=== PATIENT | male | born 1985 | race Caucasian/White ===

== ENCOUNTER 2019-09-19 14:16 | Emergency (ER) | payer OTHER, SELFPAY ==
--- NOTE | ~2019-09-19 | XR_ITS ---
XR ankle RT min 3V DATE: 09/19/2019 14:42 INDICATION: Twisted right ankle. Lateral pain. TECHNIQUE: 4 views COMPARISON: None FINDINGS: There is lateral ankle no fracture or dislocation of the ankle or disruption of the ankle m ortise is evident. Mild posterior calcaneal spurring. There is an apparently recent linear oblique proximal medial slice intra-articular fracture of the la teral base of the fifth metatarsal bone. Soft tissue swelling. IMPRESSION: Intra-articular proximal displaced lateral basilar fifth metatarsal fracture Lateral soft tissue swelling of the ankle Reviewed, dictated and finalized at location A.
[2019-09-19 14:31] VITALS: BP 131/89; PULSE 86; RESP 16; TEMP 37.2; O2SAT 99
--- NOTE | 2019-09-19 15:06 | ED.GENADULT ---
HPI - General Adult General Chief complaint: Extremity Injury, Lower Stated complaint: right ankle sprain Time Seen by Provider: 09/19/19 15:06 Source: patient and RN notes reviewed Mode of arrival: ambulatory Limitations: no limitations History of Present Illness HPI narrative: 34-year-old male presents with complains of tenderness and swelling to right ankle for the past 4 hours. Rolled RT ankle stepping off deck this morning at approximately 10am. Advil (2 tablets, last at 10:30am) with no relief. Radiating pain into foot upon bearing weight. No numbness or tingling or loss of mobility. Krishan says he is unable to bear weight, using crutches from home. Exacerbation factor consist of movement and bearing weight. The relieving factor is immobility. Denies discoloration. Denies altered sensation, back pain, neck pain, and suspected foreign body. Denies fever or chills. The patient reports he have not been diagnosed with COVID-19. The patient reports he is not waiting for the results of a COVID-19 lab test. The patient reports he do not have fever, chills, weakness, or fatigue. The patient reports he do not have a new or worsening cough or shortness of breath. Denies chest pain. The patient reports he do not have any rhinorrhea, congestion, sore throat, nausea, vomiting, abdominal pain, and diarrhea. Tolerating po intake well. Denies recent traveling. Denies concerns for COVID-19 or exposures been home with limited outdoor exposure except for essential household needs, work, and return home. At this time, patient is not suspected of having COVID-19. Some parts of this dictation were generated by voice recognition software and may contain typographical and/or grammatical inaccuracies. Related Data Home Medications Medication Instructions Recorded Confirmed No Home Medications 09/19/19 09/19/19 Allergies Allergy/AdvReac Type Severity Reaction Status Date / Time hydrocortisone Allergy Intermediate Rash Verified 09/19/19 14:26 Review of Systems Review of Systems: Narrative: CONSTITUTIONAL: Denies fever, chills, sweats. EYES: Denies visual changes, redness, discharge. ENT: Denies rhinorrhea, congestion, sore throat, otalgia. CARDIOVASCULAR: Denies chest pain, palpitations, edema. RESPIRATORY: Denies dyspnea, wheezing, cough GASTROINTESTINAL: Denies abdominal pain, nausea, vomiting, diarrhea. GENITOURINARY: Denies dysuria, hematuria, abnormal discharge SKIN: Denies rash or itching. MUSCULOSKELETAL: Denies acute back pain or myalgia. Complains of RT ankle swelling and pain. NEUROLOGIC: Denies numbness or focal weakness. PSYCHIATRIC: Denies anxiety or depression. All other systems reviewed & are unremarkable except as noted in HPI and below. [facility] Past Medical History Medical History (Updated 09/20/19 @ 00:00 by Florian Eugene) Asthma childhood History of gastroesophageal reflux (GERD) Surgical History Surgical History (Updated 09/19/19 @ 15:28 by YOSELYN Morales) No significant past surgical history Family History Family History (Updated 09/19/19 @ 15:28 by YOSELYN Morales) Father Depression Hypertension Mother Breast cancer Social History Social History (Updated 09/19/19 @ 15:29 by YOSELYN Morales) Smoking status: Never smoker Tobacco type: cigarettes Second hand tobacco smoke exposure: No Alcohol intake: current Substance use: never Living arrangements: with family Occupation/Education: occupation Gender identity (if verbalized by the patient): Male Sexual Orientation (if Verbalized by the Patient): Straight or Heterosexual Comments At time of signature, agree with nurse past medical, surgical, social, and family history. There is no relevant family history pertinent to the presenting complaint. Exam Narrative: Exam Narrative: GENERAL: This is a well-nourished, well-developed patient, in no apparent distress. Talks in full sentences
== END 2019-09-19 15:34 | disposition home or self-care (01) ==
PROVIDERS: Emergency Provider Nurse Practitioner Family
DX: S93.401A Sprain of unspecified ligament of right ankle, initial encounter (principal); X50.9XXA Other and unspecified overexertion or strenuous movements or postures, initial encounter; S92.351A Displaced fracture of fifth metatarsal bone, right foot, initial encounter for closed fracture; K21.9 Gastro-esophageal reflux disease without esophagitis
CPT/HCPCS: 29515; 73610; 99214; G0463

== ENCOUNTER 2020-11-03 14:08 | Emergency (ER) | payer OTHER, SELFPAY ==
--- NOTE | ~2020-11-03 | XR_ITS ---
EXAMINATION: XR shoulder LT min 2V EXAM DATE: 11/03/2020 14:32 INDICATION: Left shoulder pain after a fall today . Initial encounter. TECHNIQUE: The following left shoulder projections obtained: frontal projection with internal rotatio n, frontal projection with external rotation, Grashey, and scapular Y view (4+ views). There is no p rior study for comparison. FINDINGS: No evidence of left shoulder rotator cuff calcific tendinosis. Unremarkable left glenohu meral and acromioclavicular joints. Incidental note made of some linear left basilar opacity probabl y subsegmental atelectasis. There are no acute fractures or dislocations identified. There is no sub cutaneous gas. The soft tissue is unremarkable. There are no radiopaque foreign bodies. IMPRESSION: No acute osseous findings. Left basilar opacity probably subsegmental atelectasis. Reviewed, dictated and finalized at location A. IMPRESSION: No acute osseous findings. Left basilar opacity probably subsegmen maggy atelectasis.
[2020-11-03 14:22] VITALS: BP 138/94; PULSE 75; RESP 18; TEMP 37.1; O2SAT 99
--- NOTE | 2020-11-03 14:43 | ED.UPPEXIN ---
HPI - Extremity Injury (Upper) General Chief Complaint: Extremity Injury, Upper Stated Complaint: Lt shoulder pain Time Seen by Provider: 11/03/20 14:43 Source: patient and RN notes reviewed Mode of arrival: ambulatory Limitations: no limitations History of Present Illness HPI narrative: 35-year-old male with history of asthma and GERD presents with concern for left shoulder pain. Reports just prior to arrival today he slipped at work and hyperextended his left shoulder catching himself. Reports feeling a couple of pops. He denies intervention. Reports pain at rest, worsening pain with range of motion. Reports decrease strength in the shoulder. Denies decreased distal strength, sensation, range of motion. MD complaint: injury to: left and shoulder Related Data Home Medications Medication Instructions Recorded Confirmed No Home Medications 09/19/19 11/03/20 Allergies Allergy/AdvReac Type Severity Reaction Status Date / Time hydrocortisone Allergy Intermediate Rash Verified 11/03/20 14:42 Review of Systems Review of Systems: CONSTITUTIONAL: Denies malaise, chills, sweats, or fever. SKIN: Denies redness, bruising, lacerations, abrasions. MUSCULOSKELETAL: Reports left shoulder pain NEUROLOGIC: Denies numbness, weakness All systems reviewed & are unremarkable except as noted in HPI and below PMFSH Past Medical History Medical History (Updated 11/03/20 @ 15:01 by Flory Dale NP) Asthma childhood History of gastroesophageal reflux (GERD) Surgical History Surgical History (Updated 09/19/19 @ 15:28 by YOSELYN Morales) No significant past surgical history Family History Family History (Updated 09/19/19 @ 15:28 by YOSELYN Morales) Father Depression Hypertension Mother Breast cancer Social History Social History (Updated 09/19/19 @ 15:29 by YOSELYN Morales) Smoking status: Never smoker Tobacco type: cigarettes Second hand tobacco smoke exposure: No Alcohol intake: current Substance use: never Gender identity (if verbalized by the patient): Male Sexual Orientation (if Verbalized by the Patient): Straight or Heterosexual Comments At time of signature, agree with nursing past medical, surgical, social and family history. There is no relevant family history pertinent to the presenting complaint Exam Narrative: GENERAL: Well-appearing, well-nourished, and in no acute distress. HEAD: Normocephalic, atraumatic. EYES: PERRLA, conjunctivae clear NECK: Supple. CHEST: Speaks in full sentences. No respiratory distress. HEART: Regular rate and rhythm. Normal and equal peripheral pulses. EXTREMITIES: Left shoulder has normal strength and sensation, limited range of motion. No edema or ecchymosis. 4/5 strength with shoulder abduction, abduction. Normal sensation with sensitivity to light touch and pain. No point tenderness. No open wounds, no skin tenting, no devitalized tissue or atrophy, no trophic changes, no obvious deformity, alignment normal, nearby joints and structures intact. Distal pulses palpable and equal bilaterally, skin warm, dry, pink. Capillary refill less than 3 seconds. SKIN: Warm, dry, no rash. NEURO: Alert and oriented x3. PSYCH: Normal mood and affect Course Course Emergency Course: Patient is aware of diagnosis, understands and agrees to treatment plan. Anticipatory guidance given. Patient agrees to follow-up as directed and is aware of reasons to seek care at the emergency department. Portions of this record may have been created with voice recognition software Vital Signs Vital signs: Vital Signs Temperature 98.8 F 11/03/20 14:22 Pulse Rate 75 11/03/20 14:22 Respiratory Rate 18 11/03/20 14:22 Blood Pressure 138/94 H 11/03/20 14:22 Pulse Oximetry 99 11/03/20 14:22 Temperature 98.8 F 11/03/20 14:22 Pulse Rate 75 11/03/20 14:22 Respiratory Rate 18 11/03/20 14:22 Blood Pressure 138/94 H 11/03/20 14:22 Pulse
== END 2020-11-03 15:15 | disposition home or self-care (01) ==
PROVIDERS: Emergency Provider Nurse Practitioner
DX: S49.92XA Unspecified injury of left shoulder and upper arm, initial encounter (principal); W01.0XXA Fall on same level from slipping, tripping and stumbling without subsequent striking against object, initial encounter; K21.9 Gastro-esophageal reflux disease without esophagitis
CPT/HCPCS: 73030; 99213; A4565; G0463

== ENCOUNTER 2020-12-22 15:35 | Outpatient (CLI) | payer OTHER, SELFPAY ==
--- NOTE | ~2020-12-22 | MR_ITS ---
EXAMINATION: MR shoulder LT wo con DATE: 12/22/2020 16:28 INDICATION: Unspecified injury of left shoulder. Left shoulder pain. TECHNIQUE: Magnetic resonance imaging (MRI) of the left shoulder was performed without intravenous co ntrast. Sequences included axial PD-weighted FS FSE, coronal oblique PD-weighted FS FSE and T2-weight ed FS FSE, and sagittal oblique T2-weighted FS FSE and T1-weighted FSE. COMPARISON: Left shoulder radiographs 11/03/2020 FINDINGS: Coracoacromial arch: The acromion undersurface is flat in morphology (type I). Acromioclavicular joint is normal. There is a physiologic volume of fluid in subacromial/subdeltoid bursa. Rotator cuff: There is a nondisplaced fracture of greater tuberosity. There is moderate supraspinatus and infraspin atus tendinopathy. Teres minor tendon is normal. Subscapularis tendon is normal. No tear. There is no asymmetric fatty atrophy of rotator cuff muscle belly. Biceps tendon and glenoid labrum: Biceps tendon is in bicipital groove. Intra-articular biceps tendon is normal. The glenoid labrum is normal. Fluid: There is no glenohumeral joint effusion. Bones/cartilage: Glenoid cartilage is normal. Humeral head cartilage is normal. IMPRESSION: 1. Nondisplaced fracture of greater tuberosity of proximal humerus. 2. Moderate rotator cuff tendinopathy. No tear. Reviewed, dictated and finalized at location A.
== END 2020-12-22 15:36 | disposition home or self-care (01) ==
PROVIDERS: Visit Provider Orthopaedic Surgery
DX: S42.255D Nondisplaced fracture of greater tuberosity of left humerus, subsequent encounter for fracture with routine healing (principal); X58.XXXD Exposure to other specified factors, subsequent encounter
CPT/HCPCS: 73221

== ENCOUNTER 2021-02-13 15:00 | Outpatient (RCR) | payer OTHER, SELFPAY ==
[2020-11-25 15:00] VITALS: BP_SYST 100
--- NOTE | 2020-11-25 16:04 | PTOPEVAL ---
PHYSICAL THERAPY EVALUATION AND PLAN OF CARE 11-25-20 Thank you for referring Krishan Valdez to [facility] [place].? He is scheduled to be seen for therapy? 2 x/week for 4 weeks. Please review, sign, date and return this plan of care TONIA. I agree with and certify that the following plan of care is medically necessary. Referring Physician Date Attending Provider: Helio Mccarthy MD PT Outpatient Evaluation Start: 11/25/20 15:05 Document 11/25/20 15:00 DORA (Rec: 11/25/20 15:57 DORA [id number]) Outpatient Past Medical History Past Medical History Source of Past Medical History Patient Neurological History Hx Neurological Disorders No Significant History Cardiovascular History Hx Cardiac Disorders No Significant History Respiratory History Hx Asthma Yes: as child; no longer issues; Gastrointestinal History Hx Gastrointestinal Disorders No Significant History Genitourinary History Hx Genitourinary Disorders No Significant History Musculoskeletal History Hx Back Injury Yes Hx Other Musculoskeletal Disorders Yes: R clavicle fracture in high school;R ankle fracture- non surgical Endocrine History Hx Endocrine Disorders No Significant History HEENT History Hx Other HEENT Disorders Yes: seasonal allergies; wear glasses Psychosocial History Hx Depression Yes Evaluation Information Problem Diagnosis L shoulder strain Onset 11-03-20 Subjective Information was falling reached up with L Query Text:As Reported By Patient/ arm to grab an over head bread Family rack, foot slipped back and his arm went overhead and was jerked, he heard pop in L shoulder, was able to catch himself and did not hit the ground; went to ER, had xray-no fractures, went to Ortho dr & had injection; with the injection shoulder is better; 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
--- NOTE | 2020-12-21 16:04 | PTOPEVAL ---
PHYSICAL THERAPY RE-EVALUATION AND UPDATED PLAN OF CARE 12-21-20 Refer to the clinical summary below for the status today, compared to the initial eval. The goals were partially achieved. Continue PT 2x/wk for 4 weeks. Thank you for referring Krishan Valdez to [facility].? Please review, sign, date and return this plan of care TONIA. I agree with and certify that the following plan of care is medically necessary. Referring Physician Date Attending Provider: Helio Mccarthy MD Document 12/21/20 15:30 DORA (Rec: 12/21/20 16:04 DORA [id number]) Assessment Status Assessment Status Re-evaluation Outpatient Past Medical History Past Medical History Source of Past Medical History Patient Neurological History Hx Neurological Disorders No Significant History Cardiovascular History Hx Cardiac Disorders No Significant History Respiratory History Hx Asthma Yes: as child; no longer issues; Gastrointestinal History Hx Gastrointestinal Disorders No Significant History Genitourinary History Hx Genitourinary Disorders No Significant History Musculoskeletal History Hx Back Injury Yes Hx Other Musculoskeletal Disorders Yes: R clavicle fracture in high school;R ankle fracture- non surgical Endocrine History Hx Endocrine Disorders No Significant History HEENT History Hx Other HEENT Disorders Yes: seasonal allergies; wear glasses Psychosocial History Hx Depression Yes Evaluation Information Problem Subjective Information Krishan reports: shoulder is Query Text:As Reported By Patient/ moving better, going to have Family an MRI tomorrow; Pain Assessment Timing of Pain Assessment Timing of Pain Assessment Assessment Pain Scale Pain Scale Used Numeric (1 - 10) Self Report Pain Assessment Left Shoulder(s) Reported Pain Level 0 Pain Description Pulling Radicular Pain Location no numbness in L hand; sometimes pinches in back of shoulder Pain Frequency Intermittent Other Pain Description popping; pointed to proximal deltoid as area of pain Lowest Pain Intensity 0 Greatest Pain Intensity 5 Pain Aggravating Factors Exercise/Activity Other Pain Aggravating Factors abduction Pain Score Pain Score 0: Self Report Additional Pain Score Comments Quick DASH self assessment functional score of 20 % limitation in activity level awaken from shoulder pain with sleeping, 3-4 x/night;
--- NOTE | 2020-12-28 15:42 | PCPTNOTE ---
pt has new order from Dr. Mccarthy: dx: occult healing greater tuberosity fracture; gentle theraband, wt lifting limit of 2#; Discussed pt with WENDY Patel. Edited plan of care.
--- NOTE | 2021-01-18 16:10 | PTOPEVAL ---
PHYSICAL THERAPY RE-EVALUATION 01-18-21 Refer to the clinical summary below for his status today, compared to the last reevaluation. Krishan has a follow up appointment next week. Await new orders for his PT treatment, with any restrictions or limitations in his activity level. Thank you for referring Krishan Valdez to [facility] [place].? Please review, sign, date and return this updated plan of care TONIA. I agree with and certify that the following plan of care is medically necessary. Referring Physician Date Attending Provider: Helio Mccarthy MD Document 01/18/21 15:30 DORA (Rec: 01/18/21 16:10 DORA [id number]) Assessment Status Re-evaluation Subjective Information Krishan reports: feel like Query Text:As Reported By Patient/ shoulder is about the same, Family not getting better as fast as I would like it to; can sleep through the night; doing exercises at work, at home do not have enough time; at work, doing office work, not doing much and no problems with it; see next week; Pain Assessment Timing of Pain Assessment Timing of Pain Assessment Assessment Pain Scale Pain Scale Used Numeric (1 - 10) Self Report Pain Assessment Left Shoulder(s) Reported Pain Level 1 Pain Description Dull,Tightness Pain Frequency Chronic,Intermittent Other Pain Description upper lateral humerus Lowest Pain Intensity 0 Greatest Pain Intensity 4 Pain Aggravating Factors Exercise/Activity Other Pain Aggravating Factors shoulder abduction motion Pain Behaviors Guarding Pain Score Pain Score 1: Self Report Additional Pain Score Comments self assessment with Quick DASH % limitation in activity level; no tingling or pain in L hand; no issues with sleeping Interventions Used Interventions Used By Clinicians Education Pain Relief Interventions Used By Heat,Inactivity/Rest Patient Other Alleviating Interventions not taking any pain meds--over the counter only- not needed lately Upper Extremity Range of Motion Scapular/ Shoulder Range of Motion Left Shoulder Flexion - Active 140 Shoulder Abduction - Active 125 Shoulder Medial Rotation - Active fingers to mid scapula Query Text:Reach Behind the Back Shoulder Lateral Rotation - Active palm to back of head Query Text:Reach Behind the Head Scapular/Shoulder Range of Motion pt reported with shoulder Comments
--- NOTE | 2021-02-01 14:43 | PTOPEVAL ---
UPDATED PT PLAN OF CARE 01-02-21 LATE ENTRY NEW PT orders were received, pt brought into dept, dated 01-24-21, to continue PT treatment, unrestricted therapy activity. Plan of care was updated; Refer to the reeval dated 01-18-21 for his objective findings at the last reevaluation. Continue PT treatment 2x/week for 4 weeks. Please review, sign, date and return this updated plan of care TONIA. I agree with and certify that the following plan of care is medically necessary. Referring Physician Date Attending Provider: Helio Mccarthy MD
--- NOTE | 2021-02-15 11:25 | PCPTNOTE ---
This treatment is being continued on visit number [id number]. Please see documentation on both accounts to view progress. Completed interventions, outcomes, and problems have been marked as Inactive to facilitate the copying of the Care plan routine for recurring accounts.
== END 2021-02-15 08:45 | disposition home or self-care (01) ==
LOC: ANHPT 15:00
PROVIDERS: Visit Provider Orthopaedic Surgery
DX: S46.912D Strain of unspecified muscle, fascia and tendon at shoulder and upper arm level, left arm, subsequent encounter (principal); M25.512 Pain in left shoulder
CPT/HCPCS: 97014; 97035; 97110; 97140; 97161; G0283

== ENCOUNTER 2021-03-02 15:30 | Outpatient (RCR) | payer OTHER, SELFPAY ==
[2021-02-15 08:46] VITALS: BP_SYST 100
--- NOTE | 2021-02-15 11:51 | PCPTNOTE ---
This treatment is being continued from previous visit number [id number]. Please see documentation on both accounts to view progress. Completed interventions, outcomes, and problems have been marked as Inactive to facilitate the copying of the Care plan routine for recurring accounts.
--- NOTE | 2021-03-02 16:10 | PTOPEVAL ---
PHYSICAL THERAPY DISCHARGE 03-02-21 Refer to the clinical summary below, for his status today, compared to the last reeval. The goals were partially achieved--increased strength of L shoulder. He continues to have pain with abduction motion and rounded posture of his shoulders. He has been instructed on a home exercise program. Thank you for referring Krishan Valdez to [facility].? Please review, sign, date and return this Discharge TONIA. I agree with and certify that the following plan of care is medically necessary. Referring Physician Date Attending Provider: Helio Mccarthy MD Document 03/02/21 15:30 DORA (Rec: 03/02/21 16:10 DORA [id number]) Assessment Status Discharge Subjective Information Dean reports: shoulder is about Query Text:As Reported By Patient/ the same as far as pain when Family lift arm to the side; dr released him for return to full work duty 03-06-21; worried that he will hurt his shoulder again and released too early; able to sleep through the night without pain waking him; still doing shoulder exercises; Pain Assessment Timing of Pain Assessment Timing of Pain Assessment Assessment Pain Scale Pain Scale Used Numeric (1 - 10) Self Report Pain Assessment Left Shoulder(s) Reported Pain Level 0 Pain Frequency Chronic,Intermittent Lowest Pain Intensity 0 Greatest Pain Intensity 4 Other Pain Aggravating Factors top of GH joint with over 100' abduction of shoulder Pain Score Pain Score 0: Self Report Additional Pain Score Comments can function through the pain but annoying Interventions Used Interventions Used By Clinicians Education,Exercise Pain Relief Interventions Used By Inactivity/Rest Patient Other Alleviating Interventions not taking any pain meds, not using heat/ice-- Upper Extremity Range of Motion General Upper Extremity Range of Motion Gross Upper Extremity Range of Motion active ROM L shoulder in Comments standing: flexion 150', abduction 120'; IR- fingers to lower edge scapula; ER- reach to back head, palm to neck; supine passive stretch L shoulder flexion 160', abduction 155'; increase pain reported with abduction motion over 100';
== END 2021-03-03 09:47 | disposition home or self-care (01) ==
LOC: ANHPT 15:30
PROVIDERS: Visit Provider Orthopaedic Surgery
DX: S46.912D Strain of unspecified muscle, fascia and tendon at shoulder and upper arm level, left arm, subsequent encounter (principal); S42.255D Nondisplaced fracture of greater tuberosity of left humerus, subsequent encounter for fracture with routine healing; M25.512 Pain in left shoulder
CPT/HCPCS: 97035; 97110; 97140

== ENCOUNTER 2022-02-23 12:46 | Emergency (ER) | payer OTHER, SELFPAY ==
--- NOTE | ~2022-02-23 | XR_ITS ---
EXAMINATION: XR abdomen/kub 1V DATE: 02/23/2022 14:22 INDICATION: Left ureteral stone. Hematuria. Nausea. TECHNIQUE: A supine view of the abdomen on 2 radiographs was obtained. COMPARISON: CT abdomen and pelvis 02/23/2022 FINDINGS: There are no dilated loops of bowel. There is a 4 x 2 mm stone in distal left ureter. IMPRESSION: 1. 4 x 2 mm stone in distal left ureter. Reviewed, dictated and finalized at location A. [employer] ENGINEER
--- NOTE | ~2022-02-23 | CT_ITS ---
EXAMINATION: CT abdomen pelvis wo con DATE: 02/23/2022 13:54 INDICATION: Left flank pain TECHNIQUE: Computed tomography (CT) of the abdomen and pelvis was performed without intravenous contr ast. The dose-length product (DLP) was 656.61 mGy-cm. Automated exposure control and iterative recons truction technique were employed. COMPARISON: None FINDINGS: Minimal dependent atelectasis is present in the lung bases. The heart size is normal. The l iver, spleen, pancreas, gallbladder, and adrenal glands are normal. The right kidney is unremarkable. There is a 2 mm nonobstructing stone of the left kidney upper pole. There is a 4 mm stone in the dis maggy left ureter. No pathologically enlarged abdominal or pelvic lymph nodes are identified. There is no free intraperitoneal gas or evidence of bowel obstruction. The appendix is normal. There is mild l umbar spondylosis. There is a small umbilical hernia containing fat. IMPRESSION: 1. 4 mm stone of the distal left ureter. 2. Nonobstructing left nephrolithiasis. Reviewed, dictated and finalized at location B. BOY
[2022-02-23 12:49] VITALS: BP 141/88; PULSE 96; RESP 18; TEMP 36.3; O2SAT 100
[2022-02-23 13:04] LABS: Basophils Percent Auto 0.2 % (0.2-1.2); Eosinophils Absolute Auto 0.3 K/mm3 (0-0.3); Eosinophils Percent Auto 3.1 % (0-4.4); Hematocrit 51.3 % (42.0-52.0); Hemoglobin 17.4 g/dL (14.0-18.0); Immature Granulocyte Absolute 0.02 K/mm3 (0.00-0.031); Immature Granulocyte Percent A 0.2 % (0-0.5); Lymphocytes Absolute Auto 3.34 K/mm3 (0.9-3.2); Lymphocytes Percent Auto 31.9 % (18.3-44.2); Mean Corpuscular HGB Conc 33.9 g/dl (32-36); Mean Corpuscular Hemoglobin 30.3 pg (26-34); Mean Corpuscular Volume 89.4 fl (80-100); Mean Platelet Volume 9.3 fl (7.4-10.4); Monocytes Absolute Auto 0.8 K/mm3 (0.1-0.6); Monocytes Percent Auto 7.5 % (2.6-8.5); Neutrophils Percent Auto 57.1 % (45.5-73.1); Platelet Count Result 302 k/mm3 (150-375); Red Blood Count 5.74 M/mm3 (4.6-6.20); Red Cell Distribution Width 12.6 % (11.5-14.5); White Blood Count 10.5 K/mm3 (4.5-10.0)
[2022-02-23 13:05] LABS: Add Urine Microscopic? YES; Appearance Urine Clear (Clear); Bilirubin Urine Negative (Negative); Blood Urine Trace-Intact (Negative); Color Urine Yellow (Yellow); Glucose Urine UA Negative (Negative); Ketones Urine Negative (Negative); Leukocyte Esterase Ur Negative LEU/UL (Negative); Nitrate Urine Negative (Negative); Protein Urine Negative (Negative); Urobilinogen Urine 0.2 mg/dL (<2.0); pH Urine 6.5 (5.0-9.0)
[2022-02-23 13:16] LABS: Alanine Aminotransferase 93 U/L (6-50); Albumin Level 4.7 g/dL (3.5-5.1); Alkaline Phosphatase 79 U/L (38-126); Anion Gap 8 mmol/L (8-16); Aspartate Amino Transferase 42 U/L (17-59); Bilirubin,Total 0.4 mg/dL (0.2-1.3); Blood Urea Nitrogen 10 mg/dL (9-20); Calcium 9.3 mg/dL (8.4-10.2); Carbon Dioxide 30 mmol/L (22-30); Chloride 101 mmol/L (98-107); Estimated CRCL calculation 86 ml/min; Estimated Glomerular Filt Rate > 60; Glucose 104 mg/dL (65-110); Lipase 68 U/L (23-300); Sodium 139 mmol/L (137-145)
[2022-02-23 13:29] LABS: Mucus Urine Rare /lpf; WBC Urine 0-3 /hpf
--- NOTE | 2022-02-23 14:39 | ED.ABDPAIN ---
HPI - Abdominal Pain General Chief Complaint: Abdominal Pain Stated Complaint: left flank pain Time Seen by Provider: 02/23/22 13:24 History of Present Illness HPI narrative: Patient is a 36-year-old male with history of kidney stones who presents to the ER with left flank pain. Ongoing for 4 days. Radiates into his left upper abdomen. Occasional waves of nausea and vomiting. Pain was worse this morning so he came in to be evaluated. He endorses urinary frequency and some slight burning. Last kidney stone was several years ago in [place] and does not currently have a urologist here. No fevers or chills or sweats. No alleviating factors. Has tried [id number] medication without relief. Related Data Allergies Allergy/AdvReac Type Severity Reaction Status Date / Time hydrocortisone Allergy Intermediate Rash Verified 02/22/21 15:14 Review of Systems Review of Systems: All systems reviewed & are unremarkable except as noted in HPI and below Constitutional: Constitutional: Denies chills, Denies fatigue and Denies fever(s) Gastrointestinal: Gastrointestinal: Reports abdominal pain, Denies diarrhea, Reports nausea and Denies vomiting Genitourinary: Genitourinary: Reports dysuria, Denies testicular pain and Reports urinary frequency PMFSH Past Medical History Medical History (Updated 02/23/22 @ 14:44 by Kevin Cat MD) Anxiety Asthma childhood History of gastroesophageal reflux (GERD) Kidney stones Nondisplaced fracture of greater tuberosity of left humerus Surgical History Surgical History No significant past surgical history Family History Family History Father Depression Hypertension Mother Breast cancer Social History Social History Smoking status: Never smoker Tobacco type: cigarettes Second hand tobacco smoke exposure: No Alcohol intake: current Substance use: never 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 HEAD: Normocephalic, atraumatic. CHEST: Clear to auscultation. No respiratory distress. HEART: Regular rate and rhythm. Normal peripheral pulses. ABDOMEN: Soft, nontender, nondistended. No CVA tenderness bilaterally. EXTREMITIES: Normal range of motion. No edema. SKIN: Warm, dry, no rash. NEURO: Alert and oriented x3. PSYCH: Normal mood and affect. Course Course Emergency Course: Patient resting comfortably. Informed of results. Will treat symptomatically at home. Recommend follow-up with urology. No evidence of renal failure or infection. Stone should be passable. Vital Signs Vital signs: Vital Signs Temperature 97.4 F L 02/23/22 12:49 Pulse Rate 96 02/23/22 12:49 Respiratory Rate 18 02/23/22 12:49 Blood Pressure 141/88 H 02/23/22 12:49 Pulse Oximetry 100 02/23/22 12:49 Oxygen Delivery Room Air 02/23/22 12:49 Temperature 97.4 F L 02/23/22 12:49 Pulse Rate 96 02/23/22 12:49 Respiratory Rate 18 02/23/22 12:49 Blood Pressure 141/88 H 02/23/22 12:49 Pulse Oximetry 100 02/23/22 12:49 Oxygen Delivery Room Air 02/23/22 12:49 MDM - Abdominal Pain Lab Data 02/23/22 12:57 02/23/22 12:57 Labs: Lab Results 02/23/22 02/23/22 02/23/22 Range/Units 12:53 12:57 12:57 WBC 10.5 H (4.5-10.0) K/mm3 RBC 5.74 (4.6-6.20) M/mm3 Hgb 17.4 (14.0-18.0) g/dL Hct 51.3 (42.0-52.0) % MCV 89.4 (80-100) fl MCH 30.3 (26-34) pg MCHC 33.9 (32-36) g/dl RDW 12.6 (11.5-14.5) % Plt Count 302 (150-375) k/mm3 MPV 9.3 (7.4-10.4) fl Immature Gran % (Auto) 0.2 (0-0.5) % Neut % (
== END 2022-02-23 15:35 | disposition home or self-care (01) ==
PROVIDERS: Family Medicine; Emergency Provider Emergency Medicine
DX: N20.2 Calculus of kidney with calculus of ureter (principal); J45.909 Unspecified asthma, uncomplicated; K21.9 Gastro-esophageal reflux disease without esophagitis; Z87.442 Personal history of urinary calculi
CPT/HCPCS: 36415; 74018; 74176; 80053; 81001; 83690; 85025; 99284